=== PATIENT | female | born 1965 | race Caucasian/White ===

== ENCOUNTER → 2016-06-14 | Outpatient (CLI) | payer OTHER ==
--- NOTE | 2016-06-21 08:02 | MM ---
Reason for exam: screening (asymptomatic). Last mammogram was performed 7 years and 11 months ago. History: Patient is postmenopausal. Family history of breast cancer in maternal grandmother. Benign excisional biopsy of the left breast, 2001. Physical Findings: A clinical breast exam by your physician is recommended on an annual basis and results should be correlated with mammographic findings. MG Screening Mammo w CAD Bilateral CC and MLO view(s) were taken. Prior study comparison: July 07, 2008, mammogram, performed at [facility]. June 13, 2006, mammogram, performed at [facility]. There are scattered fibroglandular densities. Scar marker overlying the upper outer quadrant of the left breast. ASSESSMENT: Negative, BI-RAD 1 RECOMMENDATION: Routine screening mammogram of both breasts in 1 year.
== END | disposition home or self-care (01) ==
LOC: RADMAMWWP 08:16
PROVIDERS: ATTEND Family Medicine
DX: Z12.31 Encounter for screening mammogram for malignant neoplasm of breast (principal)

== ENCOUNTER 2018-11-06 09:53 | Emergency (ER) | payer OTHER ==
[2018-11-06] MEDS ORDERED: IPRATROPIUM-ALBUTEROL 3 ML NEB INHALATION STA (10:14)
[2018-11-06] MEDS ORDERED: methylPREDNISolone SOD SUCCI 125 MG/2 ML VIAL IM ONE (10:15)
--- NOTE | 2018-11-06 10:23 | ED ---
General Adult HPI - General Chief complaint: Shortness of Breath Stated complaint: asthma Time Seen by Provider: 11/06/18 10:04 Source: patient, RN notes reviewed Mode of arrival: wheelchair Limitations: no limitations - History of Present Illness Initial comments: 53-year-old female with a past medical history of asthma presents to the emergency department for a chief complaint of shortness of breath. Patient states that for the past 2 weeks she has had sinus congestion and a cough. States over the past week this has worsened and she now feels very wheezy and short of breath. States she is using her inhaler every few hours but it does not seem to be helping. Patient does not have a nebulizer at home. Patient states she is coughing up green phlegm as well. Denies any fevers or chills at home. Denies alleviating or aggravating factors but does state that she seems more short of breath when walking around. Patient denies any history of COPD or smoking history. States this feels like an asthma exacerbation. Denies any chest pain but does admit to chest tightness.Patient has no other complaints at this time including chest pain, abdominal pain, nausea or vomiting, headache, or visual changes. - Related Data Home Medications Medication Instructions Recorded Confirmed Albuterol Inhaler [Ventolin Hfa 1 - 2 puff INHALATION RT-Q6H PRN 11/06/18 11/06/18 Inhaler] Previous Rx's Medication Instructions Recorded Azithromycin [Zithromax Z-pack] 250 mg PO DIRECTED #6 tab 11/06/18 Fluticasone Propionate [Flonase 1 spray EA NOSTRIL DAILY 10 Days 11/06/18 Allergy Relief] #1 bottle predniSONE 50 mg PO DAILY #5 tablet 11/06/18 Allergies Allergy/AdvReac Type Severity Reaction Status Date / Time No Known Allergies Allergy Verified 11/06/18 10:27 Review of Systems ROS Statement: Those systems with pertinent positive or pertinent negative responses have been documented in the HPI. ROS Other: All systems not noted in ROS Statement are negative. Past Medical History Past Medical History: Asthma History of Any Multi-Drug Resistant Organisms: None Reported Past Surgical History: No Surgical Hx Reported Past Psychological History: No Psychological Hx Reported Smoking Status: Never smoker Past Alcohol Use History: None Reported Past Drug Use History: None Reported General Exam Limitations: no limitations General appearance: alert, in no apparent distress Head exam: Present: atraumatic, normocephalic, normal inspection Eye exam: Present: normal appearance, PERRL, EOMI. Absent: scleral icterus, conjunctival injection, periorbital swelling ENT exam: Present: normal exam, normal oropharynx, mucous membranes moist, TM's normal bilaterally, normal external ear exam Neck exam: Present: normal inspection, full ROM. Absent: tenderness, meningismus, lymphadenopathy Respiratory exam: Present: wheezes (Wheezing noted throughout all lung morat[place]). Absent: respiratory distress, rales, rhonchi, stridor, accessory muscle use Cardiovascular Exam: Present: regular rate, normal rhythm, normal heart sounds. Absent: systolic murmur, diastolic murmur, rubs, gallop, clicks Neurological exam: Present: alert Course Vital Signs 11/06/18 11/06/18 11/06/18 09:55 10:31 10:47 Temperature 98.0 F Pulse Rate 104 H 100 104 H Respiratory 20 Rate Blood Pressure 154/103 O2 Sat by Pulse 99 Oximetry 11/06/18 11:05 Temperature 97.6 F Pulse Rate 85 Respiratory 14 Rate Blood Pressure 121/63 O2 Sat by Pulse 98 Oximetry Medical Decision Making - Medical Decision Making History was obtained from patient who states this feels exactly like an asthma exacerbation. Physical exam is documented and was significant for wheezing in all lung morataya. No respiratory distress. Vitals were stable upon arrival. Minimal tachycardia noted at 104 and mild hypertension at 154/103, which did improve throughout her stay. Patient was 99% on room air. Afebrile. Chest x- ray shows a very mild central peribronchial cuffing that may be reactive or infectious. Patient was given 2 DuoNeb breathing treatments and is feeling much better. She was also given IM Solu-Medrol. I did reassess patient and lung sounds are much improved. Given symptom of duration has been 2 weeks she'll be started on a Z-Tejas and given prednisone. She has her inhaler at home and does not need a refill. Does request a nasal spray so this will be prescribed for her as well. She will follow-up with her doctor as soon as possible. - Radiology Data Radiology results: report reviewed, image reviewed 11/06/18 10:39 Chest x-ray shows a very mild central peribronchial cuffing that may be reactive or infectious. Disposition Clinical Impression: Asthma exacerbation Disposition: HOME SELF-CARE Condition: Good Instructions (If sedation given, give patient instructions): Asthma (ED) Additional Instructions: Please take steroid as directed. Continue to use your inhaler. Follow-up with your doctor in one to 2 days. Return here to the emergency department if you have any worsening symptoms or increased shortness of breath. Prescriptions: Fluticasone Propionate [Flonase Allergy Relief] 1 spray EA NOSTRIL DAILY 10 Days #1 bottle predniSONE 50 mg PO DAILY #5 tablet Azithromycin [Zithromax Z-pack] 250 mg PO DIRECTED #6 tab Is patient prescribed a controlled substance at d/c from ED?: No Referrals: Christian Wright MD [Primary Care Provider] - 1-2 days Time of Disposition: 11:21
--- NOTE | 2018-11-06 10:26 | XR ---
EXAMINATION TYPE: XR chest 2V DATE OF EXAM: 11/06/2018 COMPARISON: NONE HISTORY: Chest pain with history of asthma TECHNIQUE: Frontal and lateral views of the chest are obtained. FINDINGS: There is no focal air space opacity, pleural effusion, or pneumothorax seen. Pulmonary hyp erinflation relates to the patient's known history of asthma. Very mild central peribronchial cuffin g. The cardiac silhouette size is within normal limits. The osseous structures are intact. Minimal multilevel degenerative disc disease of the thoracic spine. IMPRESSION: Very mild central peribronchial cuffing may be reactive in this patient with asthma or i nfectious.
[2018-11-06 11:05] VITALS: BP 121/63; PULSE 85; RESP 14; TEMP 97.6
== END 2018-11-06 11:27 | disposition home or self-care (01) ==
LOC: EC 09:53
DX: J45.901 Unspecified asthma with (acute) exacerbation (principal); R00.0 Tachycardia, unspecified; I10 Essential (primary) hypertension; Z79.899 Other long term (current) drug therapy
CPT/HCPCS: 94640; 71046; 99285; 96372; J2930

== ENCOUNTER 2020-10-28 11:38 | Observation (INO) | payer OTHER ==
[2020-10-28] MEDS ORDERED: SODIUM CHLORIDE 0.9% 500 ML 500 ML IV STA (12:29)
--- NOTE | 2020-10-28 12:39 | ED ---
Abdominal Pain HPI - General Chief Complaint: Abdominal Pain Stated Complaint: Sent by /Doug Time Seen by Provider: 10/28/20 12:14 Source: patient Mode of arrival: ambulatory Limitations: no limitations - History of Present Illness Initial Comments: Patient is a 55-year-old female presenting to the emergency Department with complaints of increasing right upper quadrant pain over the past 1-2 weeks. She states she knows she has gallstones, she's been aware of this for many years but is never been much of an issue. She states over the last 2 weeks she's been having increased and right upper quadrant pain. Her doctor did an x-ray yesterday and it showed gallstones they recommended coming in for further investigation. Over this past weekend her pain was really intense, 8/10 in intensity. She's been trying to watch her diet. Today it's rated at 4/10. She does admit to intermittent nausea but no vomiting, no diarrhea. She's also been having increased in frequency over the past week but no dysuria. Over the past few days she's also been having fever and chills, fatigue as well. She still been able to eat and drink her normal diet. She admits to history of hysterectomy, tubal ligation, no other abdominal surgeries. She denies any chest pain or shortness of breath. She has no further complaints. Her vital signs are stable upon arrival. - Related Data Home Medications Medication Instructions Recorded Confirmed Albuterol Inhaler [Ventolin Hfa 1 puff INHALATION RT-Q4H PRN 10/28/20 10/28/20 Inhaler] Ergocalciferol [Vitamin D2 (1250 1,250 mcg PO Q30D 10/28/20 10/28/20 Mcg = 96910 Iu)] Fluticasone/Salmeterol [Advair 1 puff INHALATION RT-BID 10/28/20 10/28/20 500-50 Diskus] Levothyroxine Sodium [Synthroid] 50 mcg PO DAILY 10/28/20 10/28/20 Sertraline [Zoloft] 100 mg PO DAILY 10/28/20 10/28/20 Allergies Allergy/AdvReac Type Severity Reaction Status Date / Time No Known Allergies Allergy Verified 10/28/20 13:10 Review of Systems ROS Statement: Those systems with pertinent positive or pertinent negative responses have been documented in the HPI. ROS Other: All systems not noted in ROS Statement are negative. Past Medical History Past Medical History: Asthma History of Any Multi-Drug Resistant Organisms: None Reported Past Surgical History: No Surgical Hx Reported Past Psychological History: No Psychological Hx Reported Smoking Status: Never smoker Past Alcohol Use History: None Reported Past Drug Use History: None Reported General Exam - General Exam Comments Initial Comments: GENERAL: Patient is well-developed and well-nourished. Patient is nontoxic and in no acute distress. HEAD: Atraumatic, normocephalic. EYES: Pupils equal round and reactive to light, extraocular movements intact, sclera anicteric, conjunctiva are normal. Eyelids were unremarkable. ENT: Moist mucous membranes. NECK: Normal range of motion, supple without lymphadenopathy or JVD. LUNGS: Unlabored respirations. Breath sounds clear to auscultation bilaterally and equal. No wheezes rales or rhonchi. HEART: Regular rate and rhythm without murmurs, rubs or gallops. ABDOMEN: Soft, tender to palpation of the right upper quadrant,, normoactive bowel sounds. No guarding, no rebound. No masses appreciated. : Deferred MUSCULOSKELETAL: Normal extremities with adequate strength and normal range of motion, no pitting or edema. No clubbing or cyanosis. NEUROLOGICAL: Patient is alert and oriented x 3. Motor and sensory are also intact. Cranial nerves II through XII grossly intact. Symmetrical smile. Normal speech, normal gait. PSYCH: Normal mood, normal affect. SKIN: Warm, Dry, normal turgor, no rashes or lesions noted. Limitations: no limitations Course Vital Signs 10/28/20 10/28/20 10/28/20 11:46 13:39 13:42 Temperature 98.2 F 98.3 F Pulse Rate 88 77 Respiratory 18 18 Rate Blood Pressure 144/91 155/98 O2 Sat by Pulse 94 L 96 Oximetry Medical Decision Making - Medical Decision Making Patient is a 55-year-old female here for a right upper quadrant pain increasing over the past 1-2 weeks. She has history of gallstones, recent x-ray showed the stones once again. She's been having systemic symptoms such as fatigue, fever and chills. Also complaining of increase in urinary frequency for the past week. Her vital signs are stable. Labs today show no acute abnormalities, liver enzymes are within normal limits as well as bilirubin. Urine shows no evidence of infection. Ultrasound today shows a gallstone measuring 2.9 cm, no signs of ductal dilation. Patient has been having minimal pain while here in the ER, she declined any pain medications. I discussed these findings with the patient. I did discuss with patient that she is able to follow-up as an outpatient with surgery for her symptoms. She then started complaining of increase in diaphoresis, dizziness and does not feel well. She is also complaining of nausea. Patient is also not happy with going home. I did discuss case with her PCP, Dr. Wright who is okay with patient being admitted with consult to Dr. Haddad, (Per Dr. Wright). Patient is agreeable to this. Case discussed with Dr. Parish. - Lab Data Result diagrams: 10/28/20 12:37 10/28/20 12:37 Lab Results 10/28/20 10/28/20 10/28/20 Range/Units 12:37 12:37 12:37 WBC 6.6 (3.8-10.6) k/uL RBC 4.66 (3.80-5.40) m/uL Hgb 14.7 (11.4-16.0) gm/dL Hct 43.2 (34.0-46.0) % MCV 92.6 (80.0-100.0) fL MCH 31.6 (25.0-35.0) pg MCHC 34.1 (31.0-37.0) g/dL RDW 13.3 (11.5-15.5) % Plt Count 365 (150-450) k/uL MPV 6.9 Neutrophils % 70 % Lymphocytes % 23 % Monocytes % 3 % Eosinophils % 2 % Basophils % 0 % Neutrophils # 4.6 (1.3-7.7) k/uL Lymphocytes # 1.5 (1.0-4.8) k/uL Monocytes # 0.2 (0-1.0) k/uL Eosinophils # 0.1 (0-0.7) k/uL Basophils # 0.0 (0-0.2) k/uL PT 10.0 (9.0-12.0) sec INR 0.9 (<1.2) APTT 22.9 (22.0-30.0) sec Sodium (137-145) mmol/L Potassium (3.5-5.1) mmol/L Chloride (98-107) mmol/L Carbon Dioxide (22-30) mmol/L Anion Gap mmol/L BUN (7-17) mg/dL Creatinine (0.52-1.04) mg/dL Est GFR (CKD-EPI)AfAm (>60 ml/min/1.73 sqM) Est GFR (CKD-EPI)NonAf (>60 ml/min/1.73 sqM) Glucose (74-99) mg/dL Plasma Lactic Acid Keenan (0.7-2.0) mmol/L Calcium (8.4-10.2) mg/dL Total Bilirubin (0.2-1.3) mg/dL AST (14-36) U/L ALT (4-34) U/L Alkaline Phosphatase (38-126) U/L Total Protein (6.3-8.2) g/dL Albumin (3.5-5.0) g/dL Amylase (30-110) U/L Lipase (23-300) U/L Urine Color Yellow Urine Appearance Clear (Clear) Urine pH 5.0 (5.0-8.0) Ur Specific [place] 1.025 (1.001-1.035) Urine Protein Negative (Negative) Urine Glucose (UA) Negative (Negative) Urine Ketones Negative (Negative) Urine Blood Negative (Negative) Urine Nitrite Negative (Negative) Urine Bilirubin Negative (Negative) Urine Urobilinogen <2.0 (<2.0) mg/dL Ur Leukocyte Esterase Moderate H (Negative) Urine RBC 1 (0-5) /hpf Urine WBC 3 (0-5) /hpf Ur Squamous Epith Cells 3 (0-4) /hpf Urine Mucus Rare H (None) /hpf 10/28/20 10/28/20 Range/Units 12:37 12:37 WBC (3.8-10.6) k/uL RBC (3.80-5.40) m/uL Hgb (11.4-16.0) gm/dL Hct (34.0-46.0) % MCV (80.0-100.0) fL MCH (25.0-35.0) pg MCHC (31.0-37.0) g/dL RDW (11.5-15.5) % Plt Count (150-450) k/uL MPV Neutrophils % % Lymphocytes % % Monocytes % % Eosinophils % % Basophils % % Neutrophils # (1.3-7.7) k/uL Lymphocytes # (1.0-4.8) k/uL Monocytes # (0-1.0) k/uL Eosinophils # (0-0.7) k/uL Basophils # (0-0.2) k/uL PT (9.0-12.0) sec INR (<1.2) APTT (22.0-30.0) sec Sodium 136 L (137-145) mmol/L Potassium 4.3 (3.5-5.1) mmol/L Chloride 105 (98-107) mmol/L Carbon Dioxide 22 (22-30) mmol/L Anion Gap 9 mmol/L BUN 14 (7-17) mg/dL Creatinine 0.88 (0.52-1.04) mg/dL Est GFR (CKD-EPI)AfAm 85 (>60 ml/min/1.73 sqM) Est GFR (CKD-EPI)NonAf 74 (>60 ml/min/1.73 sqM) Glucose 113 H (74-99) mg/dL Plasma Lactic Acid Keenan 1.2 (0.7-2.0) mmol/L Calcium 9.6 (8.4-10.2) mg/dL Total Bilirubin 0.5 (0.2-1.3) mg/dL AST 32 (14-36) U/L ALT 18 (4-34) U/L Alkaline Phosphatase 66 (38-126) U/L Total Protein 7.4 (6.3-8.2) g/dL Albumin 4.5 (3.5-5.0) g/dL Amylase 100 (30-110) U/L Lipase 194 (23-300) U/L Urine Color Urine Appearance (Clear) Urine pH (5.0-8.0) Ur Specific [place] (1.001-1.035) Urine Protein (Negative) Urine Glucose (UA) (Negative) Urine Ketones (Negative) Urine Blood (Negative) Urine Nitrite (Negative) Urine Bilirubin (Negative) Urine Urobilinogen (<2.0) mg/dL Ur Leukocyte Esterase (Negative) Urine RBC (0-5) /hpf Urine WBC (0-5) /hpf Ur Squamous Epith Cells (0-4) /hpf Urine Mucus (None) /hpf Disposition Clinical Impression: RUQ abdominal pain, Cholelithiasis Disposition: ADMITTED IP TO THIS [facility] Condition: Stable Referrals: Christian Wright MD [Primary Care Provider] - 1-2 days Decision Date: 10/28/20 Decision Time: 14:51
[2020-10-28 12:53] LABS: Basophils % (A) 0 %; Eosinophils # (A) 0.1 k/uL (0-0.7); Eosinophils % (A) 2 %; HCT 43.2 % (34.0-46.0); HGB 14.7 gm/dL (11.4-16.0); Lymphocytes # (A) 1.5 k/uL (1.0-4.8); Lymphocytes % (A) 23 %; MCH 31.6 pg (25.0-35.0); MCHC 34.1 g/dL (31.0-37.0); MCV 92.6 fL (80.0-100.0); Mean Platelet Volume 6.9; Monocytes # (A) 0.2 k/uL (0-1.0); Monocytes % (A) 3 %; Neutrophils # (A) 4.6 k/uL (1.3-7.7); Neutrophils % (A) 70 %; Platelet Count 365 k/uL (150-450); RBC 4.66 m/uL (3.80-5.40); RDW 13.3 % (11.5-15.5); WBC 6.6 k/uL (3.8-10.6)
[2020-10-28 13:07] LABS: Albumin 4.5 g/dL (3.5-5.0); Appearance,Urine Clear (Clear); Bilirubin,Urine Negative (Negative); Blood,Urine Negative (Negative); Calcium 9.6 mg/dL (8.4-10.2); Color,Urine Yellow; Glucose,Urine (UA) Negative (Negative); Ketones,Urine Negative (Negative); Leukocyte Esterase,Urine Moderate (Negative); Mucus,Urine Rare /hpf; Nitrite,Urine Negative (Negative); Potassium 4.3 mmol/L (3.5-5.1); Protein,Urine Negative (Negative); RBC,Urine 1 /hpf (0-5); Specific Gravity,Urine 1.025 (1.001-1.035); Squamous Epithelial Cell,Urine 3 /hpf (0-4); Total Bilirubin 0.5 mg/dL (0.2-1.3); Total Protein 7.4 g/dL (6.3-8.2); Urobilinogen,Urine <2.0 mg/dL (<2.0); WBC,Urine 3 /hpf (0-5)
[2020-10-28 13:16] LABS: INR 0.9 (<1.2); Partial Thromboplastin Time 22.9 sec (22.0-30.0)
--- NOTE | 2020-10-28 13:22 | US ---
EXAMINATION TYPE: US gallbladder DATE OF EXAM: 10/28/2020 COMPARISON: NONE CLINICAL HISTORY: hx of gallstones, RUQ pain x 1-2 wks. Difficult exam due to patient body habitus EXAM MEASUREMENTS: Liver Length: 17.9 cm Gallbladder Wall: 0.1 cm CBD: 0.4 cm Right Kidney: 10.3 x 3.9 x 4.0 cm Pancreas: Tail obscured by overlying bowel gas, visualized portions wnl Liver: Coarse, heterogeneous echotexture Gallbladder: Stone visualized measuring 2.9 cm Evidence for sonographic Lew's sign: No CBD: wnl as visualized, distal portion obscured by bowel gas Right Kidney: No hydronephrosis or masses seen IMPRESSION: 1. Cholelithiasis. 2. Hepatic steatosis.
[2020-10-28] MEDS: ONDANSETRON 4 MG/2 ML VIAL IVP STA (13:40)
[2020-10-28] MEDS ORDERED: KETOROLAC 15 MG/ML 1 ML VIAL IVP PRN (14:36)
[2020-10-28] MEDS ORDERED: NALOXONE 0.4 MG/ML 1 ML VIAL IV PRN (14:36)
[2020-10-28] MEDS ORDERED: IBUPROFEN 400 MG TAB PO PRN (14:36)
[2020-10-28] MEDS: ONDANSETRON 4 MG/2 ML VIAL IVP PRN (20:59)
--- NOTE | 2020-10-29 06:52 | HP ---
HISTORY AND PHYSICAL CHIEF COMPLAINT: Abdominal pain. HISTORY OF PRESENT ILLNESS: This lady is in the office home day before admission stating that she had been getting upper abdominal pain on and off for several weeks. It had grown steadily worse. In the office she had a flat and upright films was suggestive of the possibility of a large calcified gallstone. She was treated symptomatically, but the next day she called, the pain was much worse and she went to the emergency room. In the ED she has had no fever, chills, jaundice, acholic stools, urinary complaints, vomiting, etc. In the emergency room, the stone was confirmed, but other studies were suggestive that she did not have cholecystitis. She was complaining more and more of the pain and essentially demanded to be admitted. REVIEW OF SYSTEMS: She has had no headaches, neurologic problems, chest pain, shortness of breath, fever, chills, hypertension, murmurs, rheumatic fever, liver disease, genitourinary problems, diabetes, etc. Past medical history, family history, personal and social histories are essentially unremarkable and noncontributory otherwise other than asthma. She has never smoked. She does not drink. She is overweight. PHYSICAL EXAMINATION: Blood pressure 120/80, pulse 98, respirations 20 and she is afebrile. In general, she appeared to be overweight and somewhat uncomfortable. Skin color is normal. Skin is warm, dry. Lymph nodes are not enlarged. Head, ears, eyes, nose, mouth and throat were normal. Neck veins not distended. Thyroid is not enlarged. Chest is clear. Cardiac exam is normal. The abdomen is slightly protuberant and she had upper abdominal tenderness without rebound. No definite masses or visceromegaly. Extremities are normal and neurologically she is intact. She is admitted to the hospital with diagnoses: 1. Upper abdominal pain. 2. Cholelithiasis. 3. Asthmatic bronchitis. 4. Obesity. PLAN: 1. Bedrest. 2. IV fluids. 3. Monitor abdominal findings and laboratory studies. 4. Surgical consult. MMODL / IJN: [id number] /
[2020-10-29] MEDS: PIPERACILLIN-TAZOBACTAM 3.375 GM in SODIUM CHLORIDE 0.9% 100 ML IVPB SCH ×3 (08:59→23:59)
--- NOTE | 2020-10-29 10:52 | P.GSCN ---
History of Present Illness Consult date: 10/29/20 History of present illness: CHIEF COMPLAINT: Abdominal pain HISTORY OF PRESENT ILLNESS: This is a 55-year-old female with a known history of gallstones and asthma. She has surgical history of hysterectomy and tubal ligation. She presents to the emergency room with complaints of right upper quadrant abdominal pain for the past 1-2 weeks. She had a x-ray completed o that showed gallstones. Patient states that she's been having pain in the right upper quadrant that radiates to the back. Monday she started having increased increase in her pain. Patient called it a gallbladder attack. Since then she continued to have right upper quadrant pain. She is having nausea. She had a few episodes of diarrhea. She denies any fever or chills. She has be en having episodes of sweating. She had an abdominal ultrasound completed showing cholelithiasis and hepatic steatosis. Surgical consult placed for gallstones. PAST MEDICAL HISTORY: See list. PAST SURGICAL HISTORY: See list. MEDICATIONS: See list. ALLERGIES: See list. SOCIAL HISTORY: No illicit drug use. REVIEW OF SYSTEMS: CONSTITUTIONAL: Denies fever or chills. HEENT: Denies blurred vision, vision changes, or eye pain. Denies hemoptysis CARDIOVASCULAR: Denies chest pain or pressure. RESPIRATORY: No shortness of breath. GASTROINTESTINAL: See HPI for pertinent findings HEMATOLOGIC: Denies bleeding disorders. GENITOURINARY: Denies any blood in urine or increased urinary frequency. SKIN: Denies pruitis. Denies rash. PHYSICAL EXAM: VITAL SIGNS: Reviewed GENERAL: Well-developed in no acute distress. HEENT: No sclera icterus. Extraocular movements grossly intact. Moist buccal mucosa. Head is atraumatic, normocephalic. No nasal drainage. ABDOMEN: Soft. Nondistended. Right upper quadrant tenderness with palpation NEUROLOGIC: Alert and oriented. Cranial nerves II through XII grossly intact. LABORATORY DATA: WBC 6.6 hemoglobin 14.7 platelets 365 INR 0.9 sodium 136 creatinine 0.88 LFTs normal lipase 194 and amylase 100 Urinalysis negative for infection IMAGING: Ultrasound findings as stated above ASSESSMENT: 1. Symptomatic cholelithiasis 2. Right upper quadrant abdominal pain PLAN: -Patient scheduled for laparoscopic cholecystectomy today with Dr. 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 Signing provider agrees with the documented findings, assessment, and plan of care. Past Medical History Past Medical History: Asthma History of Any Multi-Drug Resistant Organisms: None Reported Past Surgical History: Hysterectomy, Tubal Ligation Past Anesthesia/Blood Transfusion Reactions: Postoperative Nausea & Vomiting (PONV) Past Psychological History: Depression Smoking Status: Never smoker Past Alcohol Use History: None Reported Past Drug Use History: None Reported - Past Family History Brother(s) Additional Family Medical History / Comment(s): gall bladder removed. Medications and Allergies Home Medications Medication Instructions Recorded Confirmed Type Albuterol Inhaler [Ventolin Hfa 1 puff INHALATION RT-Q4H PRN 10/28/20 10/28/20 History Inhaler] Ergocalciferol [Vitamin D2 (1250 1,250 mcg PO Q30D 10/28/20 10/28/20 History Mcg = 73314 Iu)] Fluticasone/Salmeterol [Advair 1 puff INHALATION RT-BID 10/28/20 10/28/20 History 500-50 Diskus] Levothyroxine Sodium [Synthroid] 50 mcg PO DAILY 10/28/20 10/28/20 History Sertraline [Zoloft] 100 mg PO DAILY 10/28/20 10/28/20 History Allergies Allergy/AdvReac Type Severity Reaction Status Date / Time No Known Allergies Allergy Verified 10/28/20 16:05 Surgical - Exam Vital Signs Temp Pulse Resp BP Pulse Ox 98.2 F 88 18 144/91 94 L 10/28/20 11:46 10/28/20 11:46 10/28/20 11:46 10/28/20 11:46 10/28/20 11:46 Results - Labs 10/28/20 12:37 10/28/20 12:37 Abnormal Lab Results - Last 24 Hours (Table) 10/28/20 10/28/20 Range/Units 12:37 12:37 Sodium 136 L (137-145) mmol/L Glucose 113 H (74-99) mg/dL Ur Leukocyte Esterase Moderate H (Negative) Urine Mucus Rare H (None) /hpf Diabetes panel 10/28/20 Range/Units 12:37 Sodium 136 L (137-145) mmol/L Potassium 4.3 (3.5-5.1) mmol/L Chloride 105 (98-107) mmol/L Carbon Dioxide 22 (22-30) mmol/L BUN 14 (7-17) mg/dL Creatinine 0.88 (0.52-1.04) mg/dL Glucose 113 H (74-99) mg/dL Calcium 9.6 (8.4-10.2) mg/dL AST 32 (14-36) U/L ALT 18 (4-34) U/L Alkaline Phosphatase 66 (38-126) U/L Total Protein 7.4 (6.3-8.2) g/dL Albumin 4.5 (3.5-5.0) g/dL Calcium panel 10/28/20 Range/Units 12:37 Calcium 9.6 (8.4-10.2) mg/dL Albumin 4.5 (3.5-5.0) g/dL Pituitary panel 10/28/20 Range/Units 12:37 Sodium 136 L (137-145) mmol/L Potassium 4.3 (3.5-5.1) mmol/L Chloride 105 (98-107) mmol/L Carbon Dioxide 22 (22-30) mmol/L BUN 14 (7-17) mg/dL Creatinine 0.88 (0.52-1.04) mg/dL Glucose 113 H (74-99) mg/dL Calcium 9.6 (8.4-10.2) mg/dL Adrenal panel 10/28/20 Range/Units 12:37 Sodium 136 L (137-145) mmol/L Potassium 4.3 (3.5-5.1) mmol/L Chloride 105 (98-107) mmol/L Carbon Dioxide 22 (22-30) mmol/L BUN 14 (7-17) mg/dL Creatinine 0.88 (0.52-1.04) mg/dL Glucose 113 H (74-99) mg/dL Calcium 9.6 (8.4-10.2) mg/dL Total Bilirubin 0.5 (0.2-1.3) mg/dL AST 32 (14-36) U/L ALT 18 (4-34) U/L Alkaline Phosphatase 66 (38-126) U/L Total Protein 7.4 (6.3-8.2) g/dL Albumin 4.5 (3.5-5.0) g/dL
[2020-10-29] MEDS: SODIUM CHLORIDE 0.9% 1,000 ML IV SCH ×2 (11:17→16:11)
[2020-10-29] MEDS: ONDANSETRON 4 MG/2 ML VIAL IVP STA (12:30)
[2020-10-29] MEDS ORDERED: DEXAMETHASONE SOD PHOSPHATE 4 MG/ML 1 ML VIAL IVP ONE (12:30)
[2020-10-29] MEDS ORDERED: HEPARIN SODIUM,PORCINE/PF 5,000 UNIT/0.5 ML SYRINGE SQ ONE (12:31)
[2020-10-29] MEDS ORDERED: HEPARIN SODIUM,PORCINE 5,000 UNIT/ML 1 ML VIAL SQ ONE (12:31)
[2020-10-29] MEDS ORDERED: IV FLUID CONTINUATION 1,000 ML IV ONE (12:32)
[2020-10-29] MEDS ORDERED: LIDOCAINE 1% INJ 10MG/ML (20 ML MDV) ONE (13:11)
[2020-10-29] MEDS ORDERED: ePHEDrine SULFATE/0.9% NACL/PF 50 MG/5 ML SYRINGE IV ONE (13:11)
[2020-10-29] MEDS ORDERED: GLYCOPYRROLATE 0.2 MG/ML 2 ML VIAL ONE (13:11)
[2020-10-29] MEDS ORDERED: NEOSTIGMINE 1 MG/ML 10 ML VIAL ONE (13:11)
[2020-10-29] MEDS ORDERED: SUCCINYLCHOLINE CHLORIDE 100 MG/5 ML SYR IV ONE (13:11)
[2020-10-29] MEDS ORDERED: MIDAZOLAM 2 MG/2 ML VIAL ONE (13:11)
[2020-10-29] MEDS ORDERED: ROCURONIUM 10 MG/ML (5 ML VIAL) IV ONE (13:11)
[2020-10-29] MEDS ORDERED: fentaNYL (PF) 50 MCG/ML 2 ML AMP ONE (13:11)
[2020-10-29] MEDS ORDERED: PROPOFOL 10 MG/ML 20 ML VIAL IV ONE (13:11)
[2020-10-29] MEDS ORDERED: HYDROmorphone (PF) 1 MG/ML ONE (13:11)
[2020-10-29] MEDS ORDERED: LIDOCAINE 1% INJ 10MG/ML (20 ML MDV) SQ ONE (13:37)
--- NOTE | 2020-10-29 13:48 | P.OP ---
Date of Procedure: 10/29/20 Preoperative Diagnosis: Cholecystitis Postoperative Diagnosis: Cholecystitis Procedure(s) Performed: Laparoscopic cholecystectomy Anesthesia: BEREKET Surgeon: Khoa Mckeon Estimated Blood Loss (ml): 5 Pathology: other (Gallbladder) Condition: stable Disposition: PACU Description of Procedure: The patient was placed on the operating table. The patient received a general endotracheal tube anesthesia. The patients abdomen was prepped and draped in the usual sterile fashion. Through an infraumbilical stab incision, the fascia of the anterior abdominal wall was grasped with a pair of Kochers and then the Veress needle was placed in the peritoneal cavity. Position of the Veress needle was confirmed with positive drop test. The abdomen was then insufflated. After adequate insufflation, the 10 mm trocar was placed in the peritoneal cavity. Following this the laparoscope was placed in the peritoneal cavity. The patient was placed in the head-up, right side up position and then a 5 mm trocar was placed in the right lateral and right subcostal position under direct visualization. A 8 mm trocar was placed in the epigastric position. The gallbladder was grasped in the fundus and infundibulum. Traction on the gallbladder was placed in the lateral and the cephalad positions. The triangle of Calot was visualized.. The cystic duct was bluntly dissected until the union of the cystic duct and common bile duct was seen. A critical view of safety was achieved. The cystic duct was then divided and sealed with the Harmonic scissors. A PDS Endoloop was then placed throughout the cystic duct stump. The cystic artery divided and sealed with the Harmonic scissors. The gallbladder was then removed from the liver bed using Harmonic scissors. The gallbladder was then extracted through the epigastric port site. Operative field was checked for any bleeding spots and Harmonic scissors was used to coagulate the liver bed. The abdomen was irrigated. The trocars were removed. The skin was closed using interrupted 3-0 Vicryl suture. Dermabond dressing were applied. The patient tolerated the procedure well.
[2020-10-29] MEDS ORDERED: HYDROmorphone 1 MG/ML 1 ML SYRINGE IVP PRN (13:49)
[2020-10-29] MEDS: ONDANSETRON 4 MG/2 ML VIAL IVP PRN (18:15)
--- NOTE | 2020-10-29 19:48 | PN ---
PROGRESS NOTE CHIEF COMPLAINT: Abdominal pain. HISTORY OF PRESENT ILLNESS: This lady is still having some abdominal pain. She has had a low-grade temperature. She has had no vomiting. It is planned that she will be going to the operating room today. She has developed some right lower back pain. PHYSICAL EXAMINATION: Her vital signs are normal. Chest is clear and cardiac exam is normal. She is slightly tender over the epigastrium. There is no tenderness in the right flank. IMPRESSION: 1. Upper abdominal pain. 2. Right-sided low back pain. 3. Cholelithiasis. PLAN: She will be going to the operating room today. MMODL / IJN: [id number] /
[2020-10-29] MEDS: ACETAMINOPHEN TAB 325 MG TAB PO PRN (23:26)
[2020-10-30 04:31] VITALS: RESP 18
[2020-10-30] MEDS: SODIUM CHLORIDE 0.9% 1,000 ML IV SCH ×2 (06:06→13:14)
[2020-10-30] MEDS: PIPERACILLIN-TAZOBACTAM 3.375 GM in SODIUM CHLORIDE 0.9% 100 ML IVPB SCH ×2 (07:44→15:16)
[2020-10-30] MEDS: ACETAMINOPHEN TAB 325 MG TAB PO PRN (07:45)
[2020-10-30] MEDS: ONDANSETRON 4 MG/2 ML VIAL IVP PRN (07:46)
[2020-10-30] MEDS ORDERED: HYDROcodone/APAP 5-325MG 1 EACH TAB PO PRN (07:57)
[2020-10-30 08:45] LABS: Basophils % (A) 0 %; Eosinophils % (A) 1 %; HCT 38.5 % (34.0-46.0); HGB 12.5 gm/dL (11.4-16.0); Lymphocytes # (A) 1.4 k/uL (1.0-4.8); Lymphocytes % (A) 25 %; MCH 30.6 pg (25.0-35.0); MCHC 32.5 g/dL (31.0-37.0); MCV 94.3 fL (80.0-100.0); Mean Platelet Volume 7.3; Monocytes # (A) 0.3 k/uL (0-1.0); Monocytes % (A) 5 %; Neutrophils # (A) 3.8 k/uL (1.3-7.7); Neutrophils % (A) 69 %; Platelet Count 266 k/uL (150-450); RBC 4.08 m/uL (3.80-5.40); RDW 12.9 % (11.5-15.5); WBC 5.6 k/uL (3.8-10.6)
[2020-10-30] MEDS ORDERED: ENOXAPARIN 40 MG/0.4 ML SYRINGE SQ SCH (09:00)
[2020-10-30] MEDS ORDERED: ALBUTEROL NEBULIZED 2.5 MG/3 ML INHALATION PRN (09:41)
--- NOTE | 2020-10-30 11:02 | P.PN ---
Subjective Progress Note Date: 10/30/20 CHIEF COMPLAINT: Abdominal pain HISTORY OF PRESENT ILLNESS: Patient status post laparoscopic cholecystectomy. Patient tolerated surgery well. Her pain is controlled. She is tolerating diet. She is having flatus. She did have a low-grade temperature 100 last night likely due to atelectasis White count remains normal. PHYSICAL EXAM: VITAL SIGNS: Reviewed. GENERAL: Well-developed in no acute distress. HEENT: No sclera icterus. Extraocular movements grossly intact. Moist buccal mucosa. Head is atraumatic, normocephalic. ABDOMEN: Soft. Nondistended. Incision sites clean dry and intact NEUROLOGIC: Alert and oriented. Cranial nerves II through XII grossly intact. ASSESSMENT: 1. Acute cholecystitis status post laparoscopic cholecystectomy PLAN: -Patient is stable from surgical standpoint for discharge Physician Banquet Lead note has been reviewed by physician. Signing provider agrees with the documented findings, assessment, and plan of care. Objective - Vital Signs Vital signs: Vital Signs Temp 98.0 F 10/30/20 04:29 Pulse 73 10/30/20 04:29 Resp 18 10/30/20 04:29 BP 112/73 10/30/20 04:29 Pulse Ox 97 10/30/20 04:29 Intake & Output 10/29/20 10/30/20 10/30/20 18:59 06:59 18:59 Intake Total 500 100 Output Total 10 Balance 490 100 Weight 116.6 kg Intake: IV 500 Oral 100 Output: Estimated Blood Loss 10 Other: Voiding Method Toilet # Voids 1 - Labs CBC & Chem 7: 10/30/20 08:24 10/28/20 12:37
[2020-10-30 12:26] VITALS: BP 129/71; PULSE 75; TEMP 98.1
[2020-10-30] MEDS ORDERED: SYMBICORT 160-4.5 MCG INHALER INHALATION SCH (20:00)
--- NOTE | 2020-10-30 20:25 | DS ---
DISCHARGE SUMMARY CHIEF COMPLAINT: Upper quadrant abdominal pain. HISTORY OF PRESENT ILLNESS AND PHYSICAL EXAMINATION: Details of this lady's history and physical can be found in the initial workup. LABORATORY STUDIES: While she was in the hospital she had laboratory studies, details of which are found in the laboratory section of her chart. COURSE IN THE HOSPITAL: After admission she was placed on bedrest and on IV fluids and kept n.p.o. She was seen by Surgery and taken for an uneventful laparoscopic cholecystectomy. Postoperatively she did well. She had no chills, fever, nausea, vomiting, etc. She will go home on light activity and she will be followed up in several days by my office and as well as Surgery. FINAL DIAGNOSIS: Cholelithiasis and cholecystitis. OPERATION: Cholecystectomy. CONSULTATION: General Surgery. She is improved. MMODL / IJN: [id number] /
== END 2020-10-30 18:43 | disposition home or self-care (01) ==
LOC: EC 11:38 → 1SOBS 14:39 → 6PED 15:23 → 5NMEDONC 10-29 13:42
PROVIDERS: ADMIT Family Medicine; ATTEND Family Medicine
DX: K80.12 Calculus of gallbladder with acute and chronic cholecystitis without obstruction (principal); J45.909 Unspecified asthma, uncomplicated; K76.0 Fatty (change of) liver, not elsewhere classified; M54.5 Low back pain; F32.9 Major depressive disorder, single episode, unspecified; E66.9 Obesity, unspecified; Z68.41 Body mass index [BMI] 40.0-44.9, adult; Z79.890 Hormone replacement therapy; Z79.899 Other long term (current) drug therapy; Z79.51 Long term (current) use of inhaled steroids; Z90.710 Acquired absence of both cervix and uterus; Z98.51 Tubal ligation status; Z83.79 Family history of other diseases of the digestive system
CPT/HCPCS: 96376; 96361; 96374; 99285; 36415; 88304; 80053; 82150; 83605; 83690; 85025 ×2; 85610; 85730; 81001; 76705; 47562; G0378 ×4; J2543 ×2; J2250; J1644; J1100; J2710; J2405 ×3; J2001; J1650; J3010; J1170; J0330; J2704

== ENCOUNTER → 2022-01-19 | Outpatient (CLI) | payer OTHER ==
--- NOTE | 2022-01-20 13:24 | MR ---
EXAMINATION TYPE: MR lumbar spine wo con DATE OF EXAM: 01/19/2022 8:03 PM COMPARISON: L spine 06/23/2021 radiograph. CLINICAL INDICATION:Female, 56 years old with history of M47.26,G95.19; TECHNIQUE: Multi planar, multi sequence imaging was performed utilizing: T1-weighted, T2-weighted, a nd turbo inversion recovery imaging of the lumbar spine. IV Contrast: None. FINDINGS: Alignment: The lumbar vertebral bodies have preserved heights and alignment. Cord: The conus medullaris and the distal spinal cord appear unremarkable with regards to their signa l intensity and morphology. Bones/Discs: Scattered Modic endplate changes most pronounced at L5-S1. Scattered mild osteophyte fo rmation. There is facet joint arthropathy throughout the visualized spine. Multilevel degenerative di sc disease is noted and most pronounced at the . Disc desiccation at L5-S1. L1-L2: No evidence of significant spinal canal stenosis or neural foraminal stenosis. L2-L3: No evidence of significant spinal canal stenosis or neural foraminal stenosis. L3-L4: No evidence of significant spinal canal stenosis or neural foraminal stenosis. L4-L5: Disc bulge and facet joint arthropathy result in moderate spinal canal stenosis. The neural fo ramen are mildly narrowed bilaterally. L5-S1: No evidence of significant spinal canal stenosis or neural foraminal stenosis. Other findings: None. IMPRESSION: 1. No definitive evidence of disc herniation or significant spinal canal stenosis. 2. Multilevel disc degeneration with associated osteoarthritic changes resulting in disc bulge with moderate L4-L5 spinal canal stenosis.
== END | disposition home or self-care (01) ==
LOC: RADMRIMAIN 18:24
PROVIDERS: ATTEND Nurse Practitioner Family
DX: M47.26 Other spondylosis with radiculopathy, lumbar region (principal); M51.16 Intervertebral disc disorders with radiculopathy, lumbar region; M48.061 Spinal stenosis, lumbar region without neurogenic claudication; G95.19 Other vascular myelopathies
CPT/HCPCS: 72148

== ENCOUNTER → 2022-02-16 | Outpatient (CLI) | payer OTHER ==
[2022-02-16 10:51] VITALS: BP 115/77; PULSE 101; RESP 18; TEMP 98.3
--- NOTE | 2022-02-16 14:52 | P.PAINPG ---
PQRS Measure Charge Sheet Comment: HISTORY OF PRESENT ILLNESS: 56 yr old female as a referral from [facility] presents today w severe and chronic LBP secondary to for evaluation. Pt states pain level is at 8/10 in intensity w provocation, constant, localized in the lower lumbar spine, achy/ sharp in character w shooting pain towards the LLE> R. Pain is provoked by lifting. Pain is alleviated by PT x 6 wks in July 2021, hot showers, medications (Naproxen, muscle relaxers), home stretching regimen, repositioning and rest. PMH: Asthma, MDD PSH: Laparoscopic Cholecystectomy, Hysteretomy, Tubal Ligat ion SH: Never smoker, No ETOH abuse, No illicit drug use FH: Bro- Cholecystectomy All: NKDA Meds: See list REVIEW OF ORGAN SYSTEMS: CONSTITUTIONAL: No fevers or chills. No recent weight loss. NEUROLOGICAL: + numbness and tingling along the distal extremities. No seizure disorders or headaches. MUSCULOSKELETAL: + pain PSYCHIATRIC: Denies current depression or suicidal thoughts. Physical Examinations : Constitutional : Cooperative , not in acute distress . Neurologic : Cranial nerve II to XII intact. No focal neurological deficits. Psychiatric : alert & oriented x 3. Matching mood & appropriate affect. Judgment & insight intact. Musculoskeletal : Cervical Spine Motor strength in the deltoid and biceps: Normal right side. Normal Left side Motor strength biceps and the wrist extensors: Normal right side . Normal left side Motor strength in the triceps muscle: Normal right side. Normal left side Deep tendon reflexes: Normal at the biceps. Normal at Brachioradialis. Normal at triceps Vertebral body tenderness to deep palpation over Cervical facet loading test: positive bilaterally Spurling test: positive bilaterally Neck distraction test: positive bilaterally Claudette sign: positive bilaterally Lumbar spine Motor strength lower extremities ,thigh and legs 5/5 Right side , 5/5 Left side Deep tendon reflexes : Normal Knee Jerk. Normal Ankle Jerk Vertebral body tenderness over L4 Lumbar facet Loading Test: positive Right / positive Left Range of motion of the lumbar spine Flexion 30 degrees, extension 10 degrees Straight Leg Raise test: Left/ Right positive at degree Shanel test: positive right / positive left. Severe tenderness over the Sacroiliac joint on the Right / Left sides Gaenslen test: positive bilaterally Seated flexion test: positive bilaterally. Sacral spine : Severe tenderness over the Sacroiliac j oint: right side / left side Range of motion: Flexion of the lumbar spine <60 degrees Range of motion: Extension of the lumbar spine <20 degrees Gaenslen's Test positive Marvin's Test positive Shanel test: positive right side / left side Thigh Thrust Test Sacral Thrust Test Imaging: MRI without contrast of the lumbar spine from 01/19/22 reviewed Assessment/ Plan : Lumbar DDD Recommendation of BL TFESI L4-L5. May need a series of injections, up to 3 within a 6 mo period, for optimal pain relief. Risks, benefits of procedure discussed and patient verbalized understanding. Admits aspirin or anti- coagulant use or medical history of diabetes. Protocol for discontinuation/ continuation of medications khloe procedure discussed. All questions answered. I have spent greater than 30 minutes on patient care today. Dr Reyes was available by phone for the evaluation of this patient. The time was used to review the medical records including relevant urine studies and Prescription history (MAPs), review of the available imaging, evaluation and examination of the patient, coordination of care with the medical staff and if applicable referring physicians, as well as creation of the medical record PQRS Narrative: Smoking Status Never smoker Home Medications: Ambulatory Orders Albuterol Inhaler [Ventolin Hfa Inhaler] 1 puff INHALATION RT-Q4H PRN 10/28/20 Ergocalciferol [Vitamin D2 (1250 Mcg = 43542 Iu)] 1,250 mcg PO Q30D 10/28/20 Fluticasone Propion/Salmeterol [Advair 500-50 Diskus] 1 puff INHALATION RT-BID 10/28/20 Levothyroxine Sodium [Synthroid] 50 mcg PO DAILY 10/28/20 Sertraline [Zoloft] 100 mg PO DAILY 10/28/20 Docusate [Colace] 100 mg PO BID #30 capsule 10/30/20 HYDROcodone/APAP 5-325MG [[place] 5-325] 1 tab PO Q6HR PRN 3 Days #12 tab 10/30/20 Controlled Substance Measures - Controlled Substance Measures Is patient prescribed a controlled substance at discharge?: No
== END ==
LOC: PNWHC3 10:19
PROVIDERS: ATTEND Specialist
DX: M51.36 Other intervertebral disc degeneration, lumbar region (principal)
CPT/HCPCS: 99211

== ENCOUNTER 2022-03-22 12:19 | Day surgery (SDC) | payer OTHER ==
[2022-03-18 10:56] VITALS: BMI 42.0
[~2022-03-22 12:19] MED LIST: LACTATED RINGERS 1,000 ML IV SCH; LIDOCAINE 1% (10MG/ML) FOR IV START INTRADERMA PRN
[2022-03-22 12:56] VITALS: RESP 16; TEMP 97.6
[2022-03-22 13:00] LABS: Glucose,Whole Blood 103 mg/dL (70-110)
[2022-03-22] MEDS ORDERED: MIDAZOLAM 2 MG/2 ML VIAL ONE (13:19)
[2022-03-22] MEDS ORDERED: fentaNYL (PF) 50 MCG/ML 2 ML AMP ONE (13:19)
[2022-03-22] MEDS ORDERED: IOPAMIDOL M200 10 ML VIAL ONE (13:19)
[2022-03-22] MEDS ORDERED: methylPREDNISolone ACETATE 80 MG/ML 1 ML VIAL ONE (13:19)
[2022-03-22] MEDS ORDERED: LACTATED RINGERS 1,000 ML IV ONE (13:43)
[2022-03-22 14:07] VITALS: BP 119/76; PULSE 89
--- NOTE | 2022-03-22 14:19 | FL ---
Intraoperative/procedural fluoroscopic services were provided for bilateral transforaminal epidural s teroid injection. Total fluoroscopy time is 6 seconds with a total of 2 submitted images to PACS. Ple ase see the operative note for further details.
--- NOTE | 2022-03-23 13:30 | P.PCN ---
Date of Procedure: 03/22/22 Procedure(s) Performed: PREOPERATIVE DIAGNOSIS: 1-Lumbar radiculopathy . 2-lumbar degenerative disc disease. POSTOPERATIVE DIAGNOSIS: Same as preoperative diagnoses. PROCEDURE 1. Transforaminal epidural steroid injection under fluoroscopic guidance at bila teral L4-5 level. (Fluoroscopy images stored on file in the radiology Department ) 2. Lumbar epidurogram . ANESTHESIA: Local with 1% lidocaine 3 ml , moderate sedation with intravenous Versed 2 mg and fentanyle 50 micrograms. Sedation start time : 1325 . Sedation. stop time : 1336 . EBL: Minimal PROCEDURE INDICATION: The patient with low back pain and radiculopathy symptoms unresponsive to conservative treatment. PROCEDURE DESCRIPTION / TECHNIQUE: The patient was seen and identified in the preoperative area. Risks, benefits, complications, and alternatives were discussed with the patient. The patient agreed to proceed with the procedure and signed the consent. IV was started, and vital signs were stable. Patient was taken to the OR and time out was completed. The patient was placed in the prone position on procedure table and a pillow was placed under the abdomen to reduce lumbar lordosis. The lumbosacral area was prepped and draped in the usual sterile fashion. Critical pause was taken. Vital signs were closely monitored during the procedure. Conscious sedation was used during the procedure to decrease patient s anxiety. Using oblique fluoroscopy, the chin of the ``Reg dog at L4-5 level was identified, and the skin and deeper tissues just below was localized with 1% lidocaine. Subsequently, a 22-gauge 5-inch spinal needle was advanced under a tunneled view fluoroscopic guidance just underneath the chin of the ``Erg dog at the right/left L4-5 Under lateral fluoroscopy, the needle was then advanced to the posterior border of the interforaminal space. After negative aspiration of CSF and blood and with no paresthesias, 1 mL Isovue 200 contrast dye was injected excellent epidurogram and outlining of the nerve root Subsequently, 3 mL of block solution containing 40 mg Depo-Medrol and 2 mL of 0.9% normal saline PF was injected. Needle was removed and the same procedure was repeated at the left L4-5 level . At the end of the procedure, skin was cleansed, and bandages were applied. COMPLICATIONS:none DISPOSITION / PLANS: The patient was placed in a supine position and transferred to the recovery area in a stable condition for observation. There was no evidence of lower extremity motor or sensory deficit after the procedure. Patient was discharged from the recovery room after meeting discharge criteria. Home discharge instructions were given to the patient by the staff. The patient was reexamined prior to discharge.
== END 2022-03-22 14:31 | disposition home or self-care (01) ==
LOC: ORPAIN 12:19
PROVIDERS: ATTEND Specialist
DX: M51.16 Intervertebral disc disorders with radiculopathy, lumbar region (principal)
CPT/HCPCS: 64483; 99152; J2250; J1040; J3010; Q9966

== ENCOUNTER → 2022-07-07 | Outpatient (CLI) | payer OTHER ==
--- NOTE | 2022-07-07 14:58 | P.PAINPG ---
PQRS Measure Charge Sheet Comment: A 57 yr old female with a history of severe and chronic LBP secondary to lumbar DDD and spondylosis with facet arthropathy without myelopathy presents today for LBP evaluation. Pain level is provoked at 7 /10 in intensity, constant, localized in the lumbar spine, dull in character w shooting towards the LLE. Pain is provoked by walking for periods of 15 min or more, bending. Pain is alleviated with medications, injections in the past, heat, PT x 6 wks in Oct 2021, repositioning and rest. Interventional pain procedures completed include BL TFESI L4-L5 (Mar 2022) Patient is currently on Naproxen Patient denies any side effects of the medication(s), denies excessive drowsiness or sleepiness, denies suicidal ideation and reports that the current pain medication is helping to control the pain and improve activities of daily living. Patient denies any motor or sensory deficits. Patient denies any fever or night sweats, denies any change in the bowel movements or urination. Physical Examination: -Constitutional: Cooperative. Not in acute distress . - Neurologic: Cranial nerve II to XII intact. No focal neurological deficits. - Psychatric: Alert & oriented x 3. Matching mood & appropriate affect. Judgment and insight intact. - Musculoskeletal: Cervical spine: Muscle bulk/ tone/ strength in the bilateral upper extremities normal Vertebral body tenderness to palpation over Spurling test positive Distraction test positive Facet loading test positive TTP Thoracic spine Muscle bulk / tone/ strength in the bilateral paraspinal muscles normal Vertebral body tender to palpation over Facet loading test positive TTP Lumbar spine: Motor bulk/ tone/ strength lower extremities , thigh and legs : 5/5 Deep tendon reflexes : Normal Knee Jerk. Normal Ankle Jerk . Vertebral body tenderness to palpation over L4 Lumbar Facet Loading Test positive Straight Leg Raise: positive at 30 degrees right side/ left side Gaenslen's Test positive Sacral spine : Severe tenderness over the Sacroiliac joint: right side / left side Range of motion: Flexion of the lumbar spine <60 degrees Range of motion: Extension of the lumbar spine <20 degrees Gaenslen's Test positive right side / left side Shanel test: positive right side / left side Thigh Thrust Test positive right side / left side Sacral Thrust Test positive right side / left side Assessment and plan: Chronic LBP secondary to lumbar DDD, spondylosis with facet arthropathy without myelopathy Recommendation of BL TFESI L4-L5 #2. May need a series of injections for optimal pain relief. Risks, benefits of procedure discussed and pt verbalized understanding. Admits to anticoagulant use or medical history of diabetes. Protocol for discontinuation/ continuation of medications khloe procedure discussed. All questions answered. I have spent less than 30 minutes on patient care today. Dr Reyes was avail able by phone for the evaluation of this patient. The time was used to review the medical records including relevant urine studies and Prescription history (MAPs), review of the available imaging, evaluation and examination of the patient, coordination of care with the medical staff and if applicable referring physicians, as well as creation of the medical record PQRS Narrative: Smoking Status Never smoker Hx Alcohol Use (MH) No Home Medications: Ambulatory Orders Albuterol Inhaler [Ventolin Hfa Inhaler] 1 puff INHALATION RT-Q4H PRN 10/28/20 Ergocalciferol [Vitamin D2 (1250 Mcg = 78460 Iu)] 1,250 mcg PO Q30D 10/28/20 Fluticasone Propion/Salmeterol [Advair 500-50 Diskus] 1 puff INHALATION RT-BID 10/28/20 Levothyroxine Sodium [Synthroid] 50 mcg PO DAILY 10/28/20 Sertraline [Zoloft] 100 mg PO DAILY 10/28/20 Cyclobenzaprine [Flexeril] 5 mg PO TID PRN 03/18/22 Furosemide [Lasix] 20 mg PO DAILY 03/18/22 Losartan Potassium [Cozaar] 100 mg PO DAILY 03/18/22 Naproxen [EC-Naproxen] 500 mg PO BID 03/18/22 Rosuvastatin [Crestor] 20 mg PO HS 03/18/22 Controlled Substance Measures - Controlled Substance Measures Is patient prescribed a controlled substance at discharge?: No
[2022-07-07 15:55] VITALS: BP 134/90; PULSE 106; RESP 18; TEMP 98
== END ==
LOC: PNWHC3 11:00
PROVIDERS: ATTEND Specialist
DX: M51.36 Other intervertebral disc degeneration, lumbar region (principal); M47.816 Spondylosis without myelopathy or radiculopathy, lumbar region; G89.29 Other chronic pain
CPT/HCPCS: 99211

== ENCOUNTER 2022-08-11 11:07 | Day surgery (SDC) | payer OTHER ==
[2022-08-09 10:56] VITALS: BMI 41.1
[2022-08-11 11:46] VITALS: RESP 18; TEMP 97.8
[2022-08-11] MEDS ORDERED: DEXAMETHASONE SOD PHOSPHATE 10 MG/ML 1 ML VIAL ONE (12:17)
[2022-08-11] MEDS ORDERED: IOPAMIDOL M200 10 ML VIAL ONE (12:17)
--- NOTE | 2022-08-11 12:40 | P.PCN ---
Date of Procedure: 08/11/22 Description of Procedure: PREOPERATIVE DIAGNOSIS: Lumbar degenerative disc disease, Lumbar radiculopathy. POSTOPERATIVE DIAGNOSIS: Lumbar degenerative disc disease, and Lumbar radiculopathy. PROCEDURE: 1) bilateral L4-L5 Transforaminal epidural steroid injection under fluoroscopic guidance, 2) Epidurogram SURGEON: Ulysses Garcia ANESTHESIA: Local 1% lidocaine, and IV sedation: None EBL: None. Specimen removed: None Fluoroscopic imaging: saved to electronic medical record PROCEDURE INDICATION: The patient with continued lumbar pain with radiculopathy, and intervertebral disc disease without myelopathy that has failed to respond to adequate conservative management. PROCEDURE DESCRIPTION: The patient was seen and identified in the preoperative area. Risks, benefits, complications, and alternatives were discussed with the patient. The patient agreed to proceed with the procedure and signed the consent. IV was started, and vital signs were stable. Patient was taken to the OR and time out was completed. The patient was placed in the prone position on procedure table and a pillow was placed under the abdomen to reduce lumbar lordosis. The lumbosacral area was prepped with ChloraPrep 1 and draped in the usual sterile fashion. Critical pause was taken. Vital signs were closely monitored during the procedure. Using oblique fluoroscopy, the chin of the right side Reg dog L4 was identified, and the skin and deeper tissues just below was localized with 1% lidocaine. 22-guage 5-inch spinal needles were used for the procedure. The needles were guided by fluoroscopy just underneath the chin of the Reg dog of L4. Under AP fluoroscopy, the needles were advanced to the 6 o'clock position of the L4 pedicle. After negative aspiration of CSF and blood and with no paresthesias, 0.5 mL of [id number] contrast dye was injected anterior epidural spread and outlining of the L4 nerve root. 3 mL of block solution injected after negative aspiration. Block solution contained 10 mg of dexamethasone, 2 mL of preservative-free normal saline preservative-free. Needle was removed intact. Entire procedure repeated on the left side L4-L5 level. skin was cleansed, and bandages were applied. COMPLICATIONS: None. DISPOSITION : The patient was placed in a supine position and transferred to the recovery area in a stable condition for observation and was discharged from the recovery room after meeting discharge criteria. Home discharge instructions given to the patient by the staff. The patient was reexamined prior to discharge. The patient will schedule follow-up visit in 4 weeks duration.
[2022-08-11 13:06] VITALS: BP 132/83; PULSE 85
--- NOTE | 2022-08-11 17:50 | FL ---
EXAMINATION TYPE: FL guided pain mgmt statistic DATE OF EXAM: 08/11/2022 FLUOROSCOPY Fluoroscopy time of 16 seconds was used during transforaminal lumbar epidural injection. 3 image/s d ocument/s the procedure. DOSE AREA PRODUCT (DAP) UGY*M,MGY*CM: [id number]
== END 2022-08-11 13:06 | disposition home or self-care (01) ==
LOC: ORPAIN 11:07
DX: M51.16 Intervertebral disc disorders with radiculopathy, lumbar region (principal); I10 Essential (primary) hypertension; J45.909 Unspecified asthma, uncomplicated; E78.00 Pure hypercholesterolemia, unspecified; Z90.710 Acquired absence of both cervix and uterus; Z90.49 Acquired absence of other specified parts of digestive tract; E03.9 Hypothyroidism, unspecified; Z79.890 Hormone replacement therapy; Z79.899 Other long term (current) drug therapy
CPT/HCPCS: 64483; J1100; Q9966

== ENCOUNTER → 2022-09-21 | Outpatient (CLI) | payer OTHER ==
[2022-09-21 11:37] VITALS: BP 132/86; PULSE 105; RESP 18; TEMP 98.3
--- NOTE | 2022-09-21 15:31 | P.PAINPG ---
PQRS Measure Charge Sheet Comment: A 57 yr old female with a history of severe and chronic LBP secondary to lumbar DDD and spondylosis with facet arthropathy without myelopathy presents today for evaluation s/p BL TFESI L4-L5 #2. Pt states she experienced 90 % pain relief x 6 wks s/p procedure. Pain level is provoked at 3 /10 in intensity, c onstant, localized in the lumbar spine, dull in character w shooting towards the BL feet. Pain is provoked by walking for periods of 15 min or more, bending. Pain is alleviated with medications, injections in the past, heat, PT x 6 wks in Oct 2021, physician guided home exercises and stretching regimen daily since completing PT in Nov 2021 till present, repositioning and rest. Interventional pain procedures completed include BL TFESI L4-L5 x2 (Aug 2022) Patient is currently on Naproxen Patient denies any side effects of the medication(s), denies excessive drowsiness or sleepiness, denies suicidal ideation and reports that the current pain medication is helping to control the pain and improve activities of daily living. Patient denies any motor or sensory deficits. Patient denies any fever or night sweats, denies any change in the bowel movements or urination. Physical Examination: -Constitutional: Cooperative. Not in acute distress . - Neurologic: Cranial nerve II to XII intact. No focal neurological deficits. - Psychatric: Alert & oriented x 3. Matching mood & appropriate affect. Judgment and insight intact. - Musculoskeletal: Cervical spine: Muscle bulk/ tone/ strength in the bilateral upper extremities normal Vertebral body tenderness to palpation over Spurling test positive Distraction test positive Facet loading test positive TTP Thoracic spine Muscle bulk / tone/ strength in the bilateral paraspinal muscles normal Vertebral body tender to palpation over Facet loading test positive TTP Lumbar spine: Motor bulk/ tone/ strength lower extremities , thigh and legs : 5/5 Deep tendon reflexes : Normal Knee Jerk. Normal Ankle Jerk . Vertebral body tenderness to palpation over L4 Lumbar Facet Loading Test positive Straight Leg Raise: positive at 30 degrees right side/ left side Gaenslen's Test positive Sacral spine : Severe tenderness over the Sacroiliac joint: right side / left side Range of motion: Flexion of the lumbar spine <60 degrees Range of motion: Extension of the lumbar spine <20 degrees Gaenslen's Test positive right side / left side Shanel test: positive right side / left side Thigh Thrust Test positive right side / left side Sacral Thrust Test positive right side / left side Assessment and plan: Chronic LBP secondary to lumbar DDD, spondylosis with facet arthropathy without myelopathy Will follow up w Dr Corrigan for additional treatment options. All questions answered. I have spent less than 30 minutes on patient care today. Dr Reyes was available by phone for the evaluation of this patient. The time was used to review the medical records including relevant urine studies and Prescription history (MAPs), review of the available imaging, evaluation and examination of the patient, coordination of care with the medical staff and if applicable referring physicians, as well as creation of the medical record PQRS Narrative: Smoking Status Never smoker Hx Alcohol Use (MH) No Home Medications: Ambulatory Orders Albuterol Inhaler [Ventolin Hfa Inhaler] 1 puff INHALATION RT-Q4H PRN 10/28/20 Ergocalciferol [Vitamin D2 (1250 Mcg = 47319 Iu)] 1,250 mcg PO Q30D 10/28/20 Fluticasone Propion/Salmeterol [Advair 500-50 Diskus] 1 puff INHALATION RT-BID 10/28/20 Levothyroxine Sodium [Synthroid] 50 mcg PO DAILY 10/28/20 Sertraline [Zoloft] 200 mg PO DAILY 10/28/20 Furosemide [Lasix] 20 mg PO DAILY 03/18/22 Losartan Potassium [Cozaar] 100 mg PO DAILY 03/18/22 Naproxen [EC-Naproxen] 500 mg PO BID 03/18/22 Rosuvastatin [Crestor] 20 mg PO HS 03/18/22 Controlled Substance Measures - Controlled Substance Measures Is patient prescribed a controlled substance at discharge?: No
== END ==
LOC: PNWHC3 10:59
PROVIDERS: ATTEND Specialist
DX: M51.36 Other intervertebral disc degeneration, lumbar region (principal); M47.816 Spondylosis without myelopathy or radiculopathy, lumbar region; G89.29 Other chronic pain
CPT/HCPCS: 99211

== ENCOUNTER → 2023-02-16 | Outpatient (CLI) | payer OTHER ==
[2023-02-16 14:45] VITALS: BP 168/109; PULSE 89; RESP 15; TEMP 97.6
--- NOTE | 2023-02-16 15:12 | P.PAINPG ---
PQRS Measure Charge Sheet Comment: A 57 yr old female with a history of severe and chronic LBP x 1 yr secondary to lumbar DDD and spondylosis with facet arthropathy without myelopathy presents today for evaluation. Pain level is provoked at 8 /10 in intensity, constant, localized in the lumbar spine, predominantly axial, dull in character w occasional shooting towards the BL feet. Pain is provoked by walking for periods of 15 min or more, bending. Pain is alleviated with medications, injections in the past, heat, PT x 6 wks in Oct 2021, physician guided home exercises and stretching regimen daily since completing PT in Nov 2021 till present, repositioning and rest. Oswestry disability score of 28. Interventional pain procedures completed include BL TFESI L4-L5 x2 (Aug 2022) Patient is currently on Naproxen Patient denies any side effects of the medication(s), denies excessive drowsiness or sleepiness, denies suicidal ideation and reports that the current pain medication is helping to control the pain and improve activities of daily living. Patient denies any motor or sensory deficits. Patient denies any fever or night sweats, denies any change in the bowel movements or urination. Physical Examination: -Constitutional: Cooperative. Not in acute distress . - Neurologic: Cranial nerve II to XII intact. No focal neurological deficits. - Psychatric: Alert & oriented x 3. Matching mood & appropriate affect. Judgment and insight intact. - Musculoskeletal: Cervical spine: Muscle bulk/ tone/ strength in the bilateral upper extremities normal Vertebral body tenderness to palpation over Spurling test positive Distraction test positive Facet loading test positive TTP Thoracic spine Muscle bulk / tone/ strength in the bilateral paraspinal muscles normal Vertebral body tender to palpation over Facet loading test positive TTP Lumbar spine: Motor bulk/ tone/ strength lower extremities , thigh and legs : 5/5 Deep tendon reflexes : Normal Knee Jerk. Normal Ankle Jerk . Vertebral body tenderness to palpation over L5 Lumbar Facet Loading Test positive Straight Leg Raise: positive at 30 degrees right side/ left side Gaenslen's Test positive Sacral spine : Severe tenderness over the Sacroiliac joint: right side / left side Range of motion: Flexion of the lumbar spine <60 degrees Range of motion: Extension of the lumbar spine <20 degrees Gaenslen's Test positive right side / left side Shanel test: positive right side / left side Thigh Thrust Test positive right side / left side Sacral Thrust Test positive right side / left side Assessment and plan: Chronic LBP secondary to lumbar DDD, spondylosis with facet arthropathy without myelopathy Recommendation of BL TFESI L5-S1 #2. May need a series of injections for optimal pain relief. Risks, benefits of procedure discussed and patient verbalized understanding. Protocol for discontinuation/continuation of medications sweating procedure discussed. All questions answered. I have spent less than 30 minutes on patient care today. Dr Reyes was available by phone for the evaluation of this patient. The time was used to review the medical records including relevant urine studies and Prescription history (MAPs), review of the available imaging, evaluation and examination of the patient, coordination of care with the medical staff and if applicable referring physicians, as well as creation of the medical record PQRS Narrative: Smoking Status Never smoker Hx Alcohol Use (MH) No Home Medications: Ambulatory Orders Albuterol Inhaler [Ventolin Hfa Inhaler] 1 puff INHALATION RT-Q4H PRN 10/28/20 Ergocalciferol [Vitamin D2 (1250 Mcg = 77538 Iu)] 1,250 mcg PO Q30D 10/28/20 Fluticasone Propion/Salmeterol [Advair 500-50 Diskus] 1 puff INHALATION RT-BID 10/28/20 Levothyroxine Sodium [Synthroid] 50 mcg PO DAILY 10/28/20 Sertraline [Zoloft] 200 mg PO DAILY 10/28/20 Furosemide [Lasix] 20 mg PO DAILY 03/18/22 Losartan Potassium [Cozaar] 100 mg PO DAILY 03/18/22 Naproxen [EC-Naproxen] 500 mg PO BID 03/18/22 Rosuvastatin [Crestor] 20 mg PO HS 03/18/22 diazePAM [Valium] 5 mg PO DAILY PRN 1 Days #2 tab 02/16/23 Controlled Substance Measures - Controlled Substance Measures Is patient prescribed a controlled substance at discharge?: Yes When asked, does pt state using other controlled substances?: No If prescribed controlled substance>3 days was MAPS reviewed?: Prescribed <3 Days
== END ==
LOC: PNWHC3 14:04
PROVIDERS: ATTEND Anesthesiology
DX: M51.36 Other intervertebral disc degeneration, lumbar region (principal); M47.816 Spondylosis without myelopathy or radiculopathy, lumbar region; G89.29 Other chronic pain
CPT/HCPCS: 99211

== ENCOUNTER 2023-03-02 08:52 | Day surgery (SDC) | payer OTHER ==
[2023-02-23 16:20] VITALS: BMI 41.1
[~2023-03-02 08:52] MED LIST changes: -LIDOCAINE 1% (10MG/ML) FOR IV START INTRADERMA PRN
[2023-03-02 09:24] VITALS: TEMP 97
[2023-03-02] MEDS ORDERED: methylPREDNISolone ACETATE 80 MG/ML 1 ML VIAL ONE (09:49)
[2023-03-02] MEDS ORDERED: IOPAMIDOL M200 10 ML VIAL ONE (09:49)
--- NOTE | 2023-03-02 10:05 | P.PCN ---
Date of Procedure: 03/02/23 Procedure(s) Performed: PREOPERATIVE DIAGNOSIS: 1-Lumbar radiculopathy . 2-lumbar degenerative disc disease. 3-lumbar spondylosis with lumbar facet arthropathy without myelopathy POSTOPERATIVE DIAGNOSIS: 1-lumbar radiculopathy. 2-lumbar degenerative disc disease. 3-lumbar spondylosis with facet arthropathy without myelopathy PROCEDURE 1. Transforaminal epidural steroid injection under fluoroscopic guidance at bilateral L5-S1 level. (Fluoroscopy images stored on file in the radiology Department ) 2. Lumbar epidurogram . ANESTHESIA: Local with 1% lidocaine 3 ml. EBL: Minimal PROCEDURE INDICATION: The patient with low back pain and radiculopathy symptoms unresponsive to conservative treatment. PROCEDURE DESCRIPTION / TECHNIQUE: The patient was seen and identified in the preoperative area. Risks, benefits, complications, and alternatives were discussed with the patient. The patient agreed to proceed with the procedure and signed the consent. IV was started, and vital signs were stable. Patient was taken to the OR and time out was completed. The patient was placed in the prone position on procedure table and a pillow was placed under the abdomen to reduce lumbar lordosis. The lumbosacral area was prepped and draped in the usual sterile fashion. Critical pause was taken. Vital signs were closely monitored during the procedure. Using oblique fluoroscopy, the chin of the ``Reg dog at Right L5-S1 level was identified, and the skin and deeper tissues just below was localized with 1% lidocaine. Subsequently, a 22-gauge 5-inch spinal needle was advanced under a tunneled view fluoroscopic guidance just underneath the chin of the ``Reg dog at the right L5-S1 Under lateral fluoroscopy, the needle was then advanced to the posterior border of the interforaminal space. After negative aspiration of CSF and blood and with no paresthesias, 1 mL Isovue 200 contrast dye was injected excellent epidurogram and outlining of the nerve root Subsequently, 3 mL of block solution containing 40 mg Depo-Medrol and 2 mL of 0.9% normal saline PF was injected. Needle was removed and the same procedure was repeated at the left L5-S1 level . At the end of the procedure, skin was cleansed, and bandages were applied. COMPLICATIONS:none DISPOSITION / PLANS: The patient was placed in a supine position and transferred to the recovery area in a stable condition for observation. There was no evidence of lower extremity motor or sensory deficit after the procedure. Patient was discharged from the recovery room after meeting discharge criteria. Home discharge instructions were given to the patient by the staff. The patient was reexamined prior to discharge.
[2023-03-02 10:13] VITALS: RESP 16
[2023-03-02 10:37] VITALS: BP 100/65; PULSE 70
--- NOTE | 2023-03-02 12:41 | FL ---
EXAMINATION TYPE: FL guided pain mgmt statistic Intraoperative/procedural fluoroscopic services were provided. Total fluoroscopy time is 17.3 seconds with a total of 3 submitted images to PACS. Please s ee the operative/procedural note for further details. DAP: [id number] mGym2
== END 2023-03-02 10:27 | disposition home or self-care (01) ==
LOC: ORPAIN 08:52
PROVIDERS: ATTEND Specialist
DX: M51.16 Intervertebral disc disorders with radiculopathy, lumbar region (principal); M48.26 Kissing spine, lumbar region; Z90.710 Acquired absence of both cervix and uterus; Z79.899 Other long term (current) drug therapy
CPT/HCPCS: 64483; J1040; Q9966

== ENCOUNTER → 2023-07-19 | Outpatient (CLI) | payer OTHER ==
[2023-07-19 12:45] VITALS: BP 117/78; PULSE 101; RESP 16
--- NOTE | 2023-07-19 14:49 | P.PAINPG ---
PQRS Measure Charge Sheet Comment: A 57 yr old female with a history of severe and chronic LBP x 1 yr secondary to lumbar DDD and spondylosis with facet arthropathy without myelopathy presents today for evaluation s/p BL TFESI L5-S1 #2. Pt states she experienced 90 % pain relief x 4 mo s/p procedure. Pain level is provoked at 8 /10 in intensity, constant, localized in the lumbar spine, predominantly axial, dull in character w occasional shooting towards the BL feet. Pain is provoked by walking for periods of 15 min or more, bending. Pain is alleviated with medications, injections in the past, heat, PT x 6 wks in Oct 2021, physician guided home exercises and stretching regimen daily since completing PT in Nov 2021, repositioning and rest. Oswestry disability score of 28. Interventional pain procedures completed include BL TFESI L4-L5 x2 (Aug 2022), BL TFESI L5-S1 x Patient is currently on Naproxen Patient denies any side effects of the medication(s), denies excessive drowsiness or sleepiness, denies suicidal ideation and reports that the current pain medication is helping to control the pain and improve activities of daily living. Patient denies any motor or sensory deficits. Patient denies any fever or night sweats, denies any change in the bowel movements or urination. Physical Examination: -Constitutional: Cooperative. Not in acute distress . - Neurologic: Cranial nerve II to XII intact. No focal neurological deficits. - Psychatric: Alert & oriented x 3. Matching mood & appropriate affect. Judgment and insight intact. - Musculoskeletal: Cervical spine: Muscle bulk/ tone/ strength in the bilateral upper extremities normal Vertebral body tenderness to palpation over Spurling test positive Distraction test positive Facet loading test positive TTP Thoracic spine Muscle bulk / tone/ strength in the bilateral paraspinal muscles normal Vertebral body tender to palpation over Facet loading test positive TTP Lumbar spine: Motor bulk/ tone/ strength lower extremities , thigh and legs : 5/5 Deep tendon reflexes : Normal Knee Jerk. Normal Ankle Jerk . Vertebral body tenderness to palpation over L5 Lumbar Facet Loading Test positive Straight Leg Raise: positive at 30 degrees right side/ left side Gaenslen's Test positive Sacral spine : Severe tenderness over the Sacroiliac joint: right side / left side Range of motion: Flexion of the lumbar spine <60 degrees Range of motion: Extension of the lumbar spine <20 degrees Gaenslen's Test positive right side / left side Shanel test: positive right side / left side Thigh Thrust Test positive right side / left side Sacral Thrust Test positive right side / left side Assessment and plan: Chronic LBP secondary to lumbar DDD, spondylosis with facet arthropathy without myelopathy Recommendation of BL TFESI L5-S1 #2. May need a series of injections for optimal pain relief. Risks, benefits of procedure discussed and patient verbalized understanding. Protocol for discontinuation/continuation of medications sweating procedure discussed. All questions answered. I have spent less than 30 minutes on patient care today. Dr Reyes was robert ilable by phone for the evaluation of this patient. The time was used to review the medical records including relevant urine studies and Prescription history (MAPs), review of the available imaging, evaluation and examination of the patient, coordination of care with the medical staff and if applicable referring physicians, as well as creation of the medical record PQRS Narrative: Smoking Status Never smoker Hx Alcohol Use (MH) No Home Medications: Ambulatory Orders Albuterol Inhaler [Ventolin Hfa Inhaler] 1 puff INHALATION RT-Q4H PRN 10/28/20 Ergocalciferol [Vitamin D2 (1250 Mcg = 09793 Iu)] 1,250 mcg PO Q30D 10/28/20 Fluticasone Propion/Salmeterol [Advair 500-50 Diskus] 1 puff INHALATION RT-BID 10/28/20 Levothyroxine Sodium [Synthroid] 50 mcg PO DAILY 10/28/20 Sertraline [Zoloft] 200 mg PO DAILY 10/28/20 Losartan Potassium [Cozaar] 100 mg PO DAILY 03/18/22 Naproxen [EC-Naproxen] 500 mg PO BID 03/18/22 Rosuvastatin [Crestor] 20 mg PO HS 03/18/22 diazePAM [Valium] 5 mg PO DAILY PRN 1 Days #2 tab 02/16/23 Pregabalin 150 mg PO HS 02/23/23 Controlled Substance Measures - Controlled Substance Measures Is patient prescribed a controlled substance at discharge?: No
== END ==
LOC: PNWHC3 11:04
PROVIDERS: ATTEND Specialist
DX: M54.50 Low back pain, unspecified (principal); M51.36 Other intervertebral disc degeneration, lumbar region; M47.816 Spondylosis without myelopathy or radiculopathy, lumbar region
CPT/HCPCS: 99211

== ENCOUNTER 2023-08-03 09:08 | Day surgery (SDC) | payer OTHER ==
[2023-08-02 10:46] VITALS: BMI 39.4
[2023-08-03 09:44] VITALS: RESP 18; TEMP 97.6
[2023-08-03 09:49] LABS: Glucose,Whole Blood 110 mg/dL (70-110)
[2023-08-03] MEDS ORDERED: IOPAMIDOL M200 10 ML VIAL ONE (09:54)
[2023-08-03] MEDS ORDERED: DEXAMETHASONE SOD PHOSPHATE 10 MG/ML 1 ML VIAL ONE (09:54)
--- NOTE | 2023-08-03 10:02 | P.PCN ---
Date of Procedure: 08/03/23 Description of Procedure: PREOPERATIVE DIAGNOSIS: Lumbar radiculopathy POSTOPERATIVE DIAGNOSIS: Lumbar radiculopathy PROCEDURE 1. Transforaminal epidural steroid injection under fluoroscopic guidance bilateral L5-S1 2. Lumbar epidurogram IMAGING Fluoroscopy was used, images where saved to the medical record ANESTHESIA: local only EBL: Minimal PROCEDURE DESCRIPTION / TECHNIQUE: The patient was seen and identified in the preoperative area. Risks, benefits, complications, and alternatives were discussed with the patient. The patient agreed to proceed with the procedure and signed the consent, vital signs were stable prior to the procedure. Patient was taken to the OR and time out was completed. The patient was placed in the prone position on procedure table and a pillow was placed under the abdomen to reduce lumbar lordosis. The lumbosacral area was prepped and draped in the usual sterile fashion. Vital signs were closely monitored during the procedure. Conscious sedation was used. Using oblique fluoroscopy, the chin of the "Reg dog" at the pedicle and the skin and deeper tissues just below was localized with 1% lidocaine. Subsequently, a 22-gauge 5-inch spinal needle was advanced under a tunneled view fluoroscopic guidance just underneath the chin of the "Reg dog". Under lateral fluoroscopy, the needle was then advanced to the posterior border interforaminal space. After negative aspiration of CSF and blood and with no paresthesias, 1 mL of Omnipaque-240 contrast dye was injected excellent epidurogram. Subsequently, a solution totalling 2ml of dexamethasone and PFNS was injected after negative aspiration (total of 10mg of dexamethasone was used). The needle was removed intact. COMPLICATIONS: None DISPOSITION: The patient was placed in a supine position and transferred to the recovery area in a stable condition for observation. There was no evidence of lower extremity motor or sensory deficit after the procedure. Patient was discharged from the recovery room after meeting discharge criteria. Home discharge instructions were given to the patient by the staff. The patient was reexamined prior to discharge. Follow up as directed.
[2023-08-03 10:34] VITALS: BP 115/65; PULSE 99
--- NOTE | 2023-08-06 21:53 | FL ---
EXAMINATION TYPE: FL guided pain mgmt statistic DATE OF EXAM: 08/03/2023 FLUOROSCOPY Fluoroscopy time of 15 seconds was used during bilateral lumbar transforaminal epidural injections. 2 image/s document/s the procedure. 0.58781 mGycm2 DAP
== END 2023-08-03 10:33 | disposition home or self-care (01) ==
LOC: ORPAIN 09:08
PROVIDERS: ATTEND Hospitalist
DX: M54.16 Radiculopathy, lumbar region (principal); E11.9 Type 2 diabetes mellitus without complications; Z79.85 Long-term (current) use of injectable non-insulin antidiabetic drugs
CPT/HCPCS: 64483; J1100; Q9966

== ENCOUNTER → 2023-09-20 | Outpatient (CLI) | payer OTHER ==
[2023-09-20 13:13] VITALS: BP 159/94; PULSE 92; RESP 16; TEMP 98.3
--- NOTE | 2023-09-20 14:04 | P.PAINPG ---
PQRS Measure Charge Sheet Comment: A 57 yr old female with a history of severe and chronic LBP x 1 yr secondary to lumbar DDD and spondylosis with facet arthropathy without myelopathy presents today for evaluation s/p BL TFESI L5-S1 #2. Pt states she experienced 100 % pain relief x 6 wks s/p procedure. Pain level is provoked at 1 /10 in intensity, constant, localized in the lumbar spine, predominantly axial, dull in character w occasional shooting towards the BL feet. Pain is provoked by walking for periods of 15 min or more, bending. Pain is alleviated with medications, injections in the past, heat, PT x 6 wks in Oct 2021, physician guided home exercises and stretching regimen daily since completing PT in Nov 2021, repositioning and rest. Oswestry disability score of 18. Interventional pain procedures completed include BL TFESI L4-L5 x2 (Aug 2022), BL TFESI L5-S1 x2 Patient is currently on Naproxen Patient denies any side effects of the medication(s), denies excessive drowsiness or sleepiness, denies suicidal ideation and reports that the current pain medication is helping to control the pain and improve activities of daily living. Patient denies any motor or sensory deficits. Patient denies any fever or night sweats, denies any change in the bowel movements or urination. Physical Examination: -Constitutional: Cooperative. Not in acute distress . - Neurologic: Cranial nerve II to XII intact. No focal neurological deficits. - Psychatric: Alert & oriented x 3. Matching mood & appropriate affect. Judgment and insight intact. - Musculoskeletal: Cervical spine: Muscle bulk/ tone/ strength in the bilateral upper extremities normal Vertebral body tenderness to palpation over Spurling test positive Distraction test positive Facet loading test positive TTP Thoracic spine Muscle bulk / tone/ strength in the bilateral paraspinal muscles normal Vertebral body tender to palpation over Facet loading test positive TTP Lumbar spine: Motor bulk/ tone/ strength lower extremities , thigh and legs : 5/5 Deep tendon reflexes : Normal Knee Jerk. Normal Ankle Jerk . Vertebral body tenderness to palpation over L5 Lumbar Facet Loading Test positive Straight Leg Raise: positive at 30 degrees right side/ left side Gaenslen's Test positive Sacral spine : Severe tenderness over the Sacroiliac joint: right side / left side Range of motion: Flexion of the lumbar spine <60 degrees Range of motion: Extension of the lumbar spine <20 degrees Gaenslen's Test positive right side / left side Shanel test: positive right side / left side Thigh Thrust Test positive right side / left side Sacral Thrust Test positive right side / left side Assessment and plan: Chronic LBP secondary to lumbar DDD, spondylosis with facet arthropathy without myelopathy Will manage residual pain and may RTC on an as needed basis. All questions answered. I have spent less than 30 minutes on patient care today. Dr Reyes was available by phone for the evaluation of this patient. The time was used to review the medical records including relevant urine studies and Prescription history (MAPs), review of the available imaging, evaluation and examination of the patient, coordination of care with the medical staff and if applicable referring physicians, as well as creation of the medical record PQRS Narrative: Smoking Status Never smoker Hx Alcohol Use (MH) No Home Medications: Ambulatory Orders Albuterol Inhaler [Ventolin Hfa Inhaler] 1 puff INHALATION RT-Q4H PRN 10/28/20 Ergocalciferol [Vitamin D2 (1250 Mcg = 86551 Iu)] 1,250 mcg PO Q30D 10/28/20 Fluticasone Propion/Salmeterol [Advair 500-50 Diskus] 1 puff INHALATION RT-BID 10/28/20 Levothyroxine Sodium [Synthroid] 50 mcg PO DAILY 10/28/20 Sertraline [Zoloft] 200 mg PO DAILY 10/28/20 Losartan Potassium [Cozaar] 100 mg PO DAILY 03/18/22 Naproxen [EC-Naproxen] 500 mg PO BID 03/18/22 Rosuvastatin [Crestor] 20 mg PO HS 03/18/22 Montelukast Sodium 10 mg PO HS 08/02/23 diazePAM [Valium] 5 - 10 mg PO DAILY PRN 08/02/23 Semaglutide [Wegovy] 0.25 mg SQ WEEKLY 08/03/23 Controlled Substance Measures - Controlled Substance Measures Is patient prescribed a controlled substance at discharge?: No
== END ==
LOC: PNWHC3 12:45
PROVIDERS: ATTEND Specialist
DX: M51.16 Intervertebral disc disorders with radiculopathy, lumbar region (principal); M47.26 Other spondylosis with radiculopathy, lumbar region
CPT/HCPCS: 99211